=== PATIENT | female | born 1965 | race Caucasian/White ===

== ENCOUNTER → 2016-09-22 | Outpatient (CLI) | payer OTHER ==
[2016-09-22 15:26] LABS: BASO % 0.3 % (0.0-2.0); EOS # 0.2 (0.0-0.7); EOS % 2.1 % (0-4.0); GRAN # 5.6 (1.4-6.5); GRAN % 60.8 % (42.2-75.2); HEMATOCRIT 40.3 % (37.0-47.0); HEMOGLOBIN 13.4 g/dl (12.5-16.0); LYMPH # 2.7 (1.2-3.4); LYMPH % 29.1 % (20.0-51.0); MEAN CELL VOLUME 83 fl (80.0-100.0); MEAN CORPUSCULAR HEMOGLOBIN 28 pg (27.0-31.0); MEAN CORPUSCULAR HGB CONC 33 g/dl (33.0-37.0); MEAN PLATELET VOLUME 10.9 fl (7.4-10.4); MONO # 0.7 (0.1-0.6); MONO % 7.4 % (1.7-9.3); PLATELET COUNT 220 K/mm3 (130-400); RED BLOOD COUNT 4.83 M/mm3 (4.10-5.30); REDCELL DISTRIBUTION WIDTH-CV 13.8 % (11.5-14.5); WHITE BLOOD COUNT 9.3 K/mm3 (4.8-10.8)
[2016-09-22 15:35] LABS: ADJUSTED CALCIUM 9.4 mg/dL (8.4-10.2); ALBUMIN 4.6 gm/dL (3.5-5.0); CALCIUM 9.9 mg/dL (8.4-10.2); CREATININE, serum 0.83 mg/dL (0.52-1.25); POTASSIUM 3.6 mmol/L (3.4-5.0)
== END ==
LOC: COL.LAB 15:07
PROVIDERS: Physician Assistant
DX: R19.7 Diarrhea, unspecified (principal)

== ENCOUNTER → 2023-04-12 | Outpatient (RCR) | payer BC | LOC: WSPT | DX: M76.61 Achilles tendinitis, right leg (principal); M76.72 Peroneal tendinitis, left leg; M21.6X1 Other acquired deformities of right foot; M21.6X2 Other acquired deformities of left foot; M62.571 Muscle wasting and atrophy, not elsewhere classified, right ankle and foot; M62.572 Muscle wasting and atrophy, not elsewhere classified, left ankle and foot; M76.821 Posterior tibial tendinitis, right leg; M76.822 Posterior tibial tendinitis, left leg ==

== ENCOUNTER → 2023-05-11 | Outpatient (RCR) | payer BC | END | disposition home or self-care (01) | LOC: WSPT | DX: M21.6X2 Other acquired deformities of left foot (principal); M21.6X1 Other acquired deformities of right foot; M62.571 Muscle wasting and atrophy, not elsewhere classified, right ankle and foot; M62.572 Muscle wasting and atrophy, not elsewhere classified, left ankle and foot; M76.61 Achilles tendinitis, right leg; M76.62 Achilles tendinitis, left leg; M76.821 Posterior tibial tendinitis, right leg; M76.822 Posterior tibial tendinitis, left leg ==

== ENCOUNTER 2023-05-25 10:30 | Outpatient (RCR) | payer BC | END 2023-06-11 | LOC: WSPT | DX: M76.61 Achilles tendinitis, right leg (principal); M76.72 Peroneal tendinitis, left leg; M62.571 Muscle wasting and atrophy, not elsewhere classified, right ankle and foot; M62.572 Muscle wasting and atrophy, not elsewhere classified, left ankle and foot; M76.821 Posterior tibial tendinitis, right leg; M76.822 Posterior tibial tendinitis, left leg; M21.6X1 Other acquired deformities of right foot; M21.6X2 Other acquired deformities of left foot ==